=== PATIENT | female | born 1960 | race Caucasian/White ===

== ENCOUNTER 2022-02-11 08:15 | Outpatient (RCR) | payer OTHER, BC, SELFPAY | END 2022-02-14 07:57 | disposition home or self-care (01) | PROVIDERS: PCP Family Medicine; Visit Provider Family Medicine | DX: M54.2 Cervicalgia (principal); Z51.89 Encounter for other specified aftercare | CPT/HCPCS: 97110; 97112; 97140; 97161 ==

== ENCOUNTER 2023-04-15 13:14 | Emergency (ER) | payer BC, SELFPAY ==
[2023-04-15 13:31] VITALS: BP 117/82; PULSE 91; RESP 20; TEMP 37.3; O2SAT 98; BMI 33.5
[2023-04-15] MEDS: OXYMETAZOLINE 0.05% NASAL SPRAY 1 SPRAY NOSTRIL-B (16:38)
[2023-04-15 16:40] VITALS: BP 150/94; PULSE 80; RESP 18; O2SAT 98
--- NOTE | 2023-04-15 19:54 | ED_ITS ---
HPI - General Adult General Date Seen: 04/15/23 Chief complaint: Eye Problems Stated complaint: Flu symptoms Time Seen by Provider: 04/15/23 16:11 History of Present Illness HPI narrative: 62-year-old female. Presents to the ER today for evaluation of influenza s ymptoms including cough, nasal congestion, sore throat, facial pain, as well as an exudate of conjunctivitis of her right eye. She 1st developed symptoms of cough and respiratory illness 6 days ago last Monday. She was seen in the urgent care on Monday and had a trouble swab that was negative for coronavirus and negative for RSV but positive for influenza A. She was prescribed Tamiflu. She was apparently wheezing and clinical so was also prescribed albuterol. She was also given a prescription for Tessalon. Since Monday she has also developed diarrhea with several soft and watery stools. No vomiting. No abdominal pain. She has had ongoing cough but no shortness of breath. No chest pain. She has had ongoing nasal congestion and bilateral cheek/facial pain. This morning she also developed redness and irritation of her right eye with green exudate at her eyelid. No severe headache. No confusion. No stiff neck. She has been using Tylenol as needed for fevers. She has been using Tessalon for cough. She has been afraid to try the albuterol inhaler because she read on the side effect profile that it can cause racing heart. She is not really short of breath. She is concerned because she has been sick now for almost a week but isn't getting better. Related Data Home Medications Medication Instructions Recorded Confirmed albuterol sulfate 90 mcg/actuation 1 - 2 puff inhalation Q6H PRN 04/15/23 04/15/23 aerosol inhaler dyspnea atorvastatin 40 mg tablet 40 mg PO DAILY 04/15/23 04/15/23 benzonatate 100 mg capsule 100 mg PO 3XD 04/15/23 04/15/23 calcium phos,dibas-vitamin D3 PO 04/15/23 levothyroxine 50 mcg tablet 50 mcg PO DAILY 04/15/23 04/15/23 oseltamivir 75 mg capsule 75 mg PO BID 04/15/23 04/15/23 Previous Rx's Medication Instructions Recorded ofloxacin 0.3 % eye drops 1 drp ophthalmic (eye) QID #5 mL 04/15/23 Allergies Allergy/AdvReac Type Severity Reaction Status Date / Time No Known Drug Allergies Allergy Verified 04/15/23 13:38 PFSH [facility] Social History Smoking Status: Never smoker How often do you have a drink containing alcohol: never AUDIT-C Alcohol total score: 0 Non-prescribed substance use: denies use Exam Narrative: Exam Narrative: Constitutional: Appears well-developed and well-nourished. Alert. Conversant. Non toxic. HENT: Head: Atraumatic. Nose: Nose normal. Endorses facial pain when she bends over but does not have any maxillary sinus tenderness or other sinus tenderness. Mouth/Throat: Oral mucosa is clear and moist. no trismus. Pharynx normal. Tonsils symmetric. No tonsillar enlargement, erythema, or exudate. Eyes: She has erythema of the conjunctiva of her right eye and eyelids. There is copious greenish exudate from the upper and lower lids. No lid swelling. No exophthalmos or enophthalmos.. EOM normal and pain-free. No visible foreign body. Pupils equal, round, and reactive to light. No scleral icterus. Neck: Normal range of motion. Neck supple. No tracheal deviation present. Cardiovascular: Normal rate, regular rhythm. No gallop. No friction rub. No murmur heard. Symmetric radial artery pulses Pulmonary/Chest: Effort normal. No stridor. No respiratory distress. No wheezes. No rales. No rhonchi . No tenderness. Abdominal: Soft. No distension. No mass. No tenderness. No rebound. No guarding. Musculoskeletal: RUE: Normal range of motion. No tenderness. No deformity LUE: Normal range of motion. No tenderness. No deformity RLE: Normal range of motion. No edema. No tenderness. No deformity LLE: Normal range of motion. No edema. No tenderness. No deformity Lymph: No cervical adenopathy. Neurological: Alert and oriented to person, place, and time. Normal strength. CN II-VII intact. No sensory deficit. GCS eye subscore is 4. GCS verbal subscore is 5. GCS motor subscore is 6. Normal coordination Skin: Skin is warm and dry. No rash noted. No pallor. Normal capillary refill. Psychiatric: Normal mood. Normal affect. Const: Vital Signs, click to edit/add: Vital Signs - 24 hr 04/15/23 13:31 04/15/23 16:40 Temperature 99.2 F Pulse Rate [Pulse Oximeter] 91 80 Respiratory Rate 20 18 Blood Pressure [Ri ght Upper Arm] 117/82 150/94 H Pulse Oximetry 98 98 Oxygen Delivery Me thod Room Air Room Air Course Vital Signs Vital signs: Initial Vital Signs Temperature 99.2 F 04/15/23 13:31 Temperature Source Temporal Artery Scan 04/15/23 13:31 Pulse Rate 91 04/15/23 13:31 Respiratory Rate 20 04/15/23 13:31 Blood Pressure 117/82 04/15/23 13:31 Blood Pressure Mean 93 04/15/23 13:31 Blood Pressure Position Sitting 04/15/23 13:31 Pulse Oximetry 98 04/15/23 13:31 Oxygen Delivery Method Room Air 04/15/23 13:31 Vital Signs Temperature 99.2 F 04/15/23 13:31 Pulse Rate 91 04/15/23 13:31 Respiratory Rate 20 04/15/23 13:31 Blood Pressure 117/82 04/15/23 13:31 Pulse Oximetry 98 04/15/23 13:31 Oxygen Delivery Method Room Air 04/15/23 13:31 Temperature 99.2 F 04/15/23 13:31 Pulse Rate 80 04/15/23 16:40 Respiratory Rate 18 04/15/23 16:40 Blood Pressure 150/94 H 04/15/23 16:40 Pulse Oximetry 98 04/15/23 16:40 Oxygen Delivery Method Room Air 04/15/23 16:40 Medications Administered Medications: Discontinued Medications Generic Name Dose Route Start Last Admin Trade Name Quinnq PRN Reason Stop Dose Admin Oxymetazoline HCl 1 spray 04/15/23 16:30 04/15/23 16:38 Oxymetazoline 0.05% Nasal [facility] NOSTRIL-B 1 spray BID PRN Administration Medical Decision Making MDM Narrative Medical decision making narrative: This patient presents for re-evaluation of cough, fever, and myalgias. This is consistent with an influenza like illness and she was positive for influenza A 4 days ago on Monday. She was given a prescription for Tamiflu but only took the 1st day of it and stopped after she developed GI side effects. She is concerned because she is not getting better yet. Discussed with the patient that often times influenza last more than 7-10 days. She is currently on day 6 of illness. At this point there is no shortness of breath, hypoxia, or abnormal lung findings to raise confirmed for bacterial super infection or pneumonia. She does have ongoing nasal congestion which we treated with Afrin here in the ER. She also has developed a exudate of conjunctivitis of her right eye. This may be viral from the influenza but will cover her with a course of ofloxacin eyedrops for possible bacterial conjunctivitis. At this point she is doing well in terms of hydration. No indication for IV or labs. At this point no clear evidence for bacterial sepsis or indication for admission.. With influenza, she is are at risk for pneumonia but no signs of this are detected on today's visit. Close followup of primary care physician is indicated and return to the ED for high fevers > 103 for more than 48 hours more, increasing productive cough, shortness of breath, or confusion. There is no signs of serious bacterial infection such as bacteremia, meningitis, UTI/pyelonephritis, strep pharyngitis, etc. Discharge Plan Discharge Clinical Impression: Influenza A, Conjunctivitis Patient Disposition: Home, Self-Care Condition: Stable Instructions: Influenza (DC), Conjunctivitis (ED) Additional Instructions: Please drink plenty of fluids and stay hydrated. Use Tylenol or ibuprofen if needed for fever or body aches or headache. Use the antibiotics drops (ofloxacin) 4 times per day for 5 days. If your eye is not completely improve within 5 days, please recheck with your regular doctor or return to the ER. He will probably continue to have cough, nasal congestion, headache, stuffy nose, and other influenza symptoms for 2-4 more days. You can return to work after you have been afebrile for 24 hours. If you have worsening trouble breathing, dehydration, weakness, or any concerns, please return to the ER right away. Prescriptions: New ofloxacin 0.3 % drops 1 drp ophthalmic (eye) QID Qty: 5 0RF No Action atorvastatin 40 mg tablet 40 mg PO DAILY benzonatate 100 mg capsule 100 mg PO 3XD levothyroxine 50 mcg tablet 50 mcg PO DAILY oseltamivir 75 mg capsule 75 mg PO BID albuterol sulfate 90 mcg/actuation HFA aerosol inhaler 1 - 2 puff INHALATION Q6H PRN (Reason: dyspnea) calcium phos,dibas-vitamin D3 [Vitamin D (with calcium)] PO Stand Alone Forms: MyHealth Info Instructions
== END 2023-04-15 17:00 | disposition home or self-care (01) ==
LOC: ED 16:51
PROVIDERS: Emergency Provider Emergency Medicine
DX: J10.1 Influenza due to other identified influenza virus with other respiratory manifestations (principal); H10.9 Unspecified conjunctivitis
CPT/HCPCS: 87631; 95992; 99283